=== PATIENT | male | born 1955 | race Caucasian/White ===

== ENCOUNTER 2020-07-14 14:44 | Emergency (ER) | payer MEDICAID ==
[~2020-07-14] VITALS: Ht 185.4 cm; Wt 83.5 kg
--- NOTE | 2020-07-14 14:57 | NUR ---
PT IS IN ROOM #2A. DR JACOBS EVALUATED THE PT.
--- NOTE | 2020-07-14 15:44 | NUR ---
PT WAS D/C'd TO HOME. D/C INSTRUCTIONS GIVEN TO THE PT BY DR JACOBS.
[2020-07-14 15:45] VITALS: BP 151/88
== END 2020-07-14 15:46 | disposition home or self-care (01) ==
LOC: ER 14:44
DX: R33.9 Retention of urine, unspecified (principal); R03.0 Elevated blood-pressure reading, without diagnosis of hypertension; C44.310 Basal cell carcinoma of skin of unspecified parts of face; Z98.890 Other specified postprocedural states
CPT/HCPCS: 51702; A4663